=== PATIENT | male | born 1990 | race African-American/Black ===

== ENCOUNTER 2019-10-24 18:11 | Emergency (ER) | payer OTHER ==
[~2019-10-24] VITALS: Ht 185.4 cm; Wt 86.2 kg
[2019-10-24 18:19] VITALS: BP 139/65
[2019-10-24 18:27] VITALS: BP 139/65
[2019-10-24] MEDS ORDERED: Hydrogen Peroxide 473ml Bottle TOPIC ONE (18:47)
--- NOTE | 2019-10-24 19:02 | Emergency Room Report ---
History of Present Illness General Chief Complaint: Laceration Source: Patient Present Illness HPI 29-year-old male with no symptom medical history here due to a laceration while gardening 30 minutes prior to arrival. Obvious deformity of the nail involvement noted. Minimal bleeding noted. Patient appears to be up-to-date with tetanus shot. Range of motion, no neurovascular changes noted. Motor and sensory deficits are not noted. Denies all other injuries. Has not taken medication for symptom relief. Allergies: Coded Allergies: No Known Allergies (Unverified , 10/24/19) COVID-19 Screening Contact w/high risk pt: No Recent Travel to affected area: No Experienced COVID-19 symptoms?: No COVID-19 Testing performed FENDER MECHANIC: No Patient History Past Medical History: see triage record Past Surgical History: none Pertinent Family History: none Immunizations: UTD Reviewed Nursing Documentation: PMH: Agreed; PSxH: Agreed Nursing Documentation-PMH Past Medical History: No Stated History Review of Systems All Other Systems: negative except mentioned in HPI Physical Exam Vital Signs Date Time Temp Pulse Resp B/P (MAP) Pulse Ox O2 Delivery O2 Flow Rate FiO2 10/24/19 18:19 98.2 75 139/65 (89) Sp02 EP Interpretation: reviewed, normal General Appearance: no apparent distress, alert, GCS 15, non-toxic Head: normocephalic, atraumatic Eyes: bilateral eye normal inspection, bilateral eye PERRL ENT: hearing grossly normal, normal pharynx, no angioedema, normal voice Neck: full range of motion, supple/symm/no masses Respiratory: chest non-tender, lungs clear, normal breath sounds, no rhonchi, speaking full sentences Cardiovascular #1: regular rate, rhythm, no edema Cardiovascular #2: 2+ radial (R), 2+ radial (L) Gastrointestinal: normal bowel sounds, non tender, soft, non-distended, no guarding, no rebound Genitourinary: no CVA tenderness Musculoskeletal: back normal Neurologic: alert, motor strength/tone normal, oriented x3, sensory intact, responsive, speech normal Psychiatric: judgement/insight normal, memory normal, mood/affect normal, no suicidal/homicidal ideation Skin: laceration - Superficial laceration right middle finger with nail involvement Lymphatic: no adenopathy Procedures Laceration/Wound Repair Laceration/Wound Repair : Consent: Verbal Wound Location: upper extremity - right middle finger Wound's Depth, Shape: superficial Wound Length (cm): 1 Wound Explored: contaminated Anesthesia: 1% Lidocaine Volume Anesthetic (ccs): 7 Wound Debrided: minimal Wound Repaired With: sutures, Dermabond Suture Size/Type: 4:0, proline Number of Sutures: 4 Sterile Dressing Applied?: Yes Splint Applied?: Yes Type of Splint Applied: metal Sling Applied?: No Patient Tolerated: Well Complications: None Medical Decision Making PA Attestation All diagnoses and treatment plans were reviewed and discussed with my supervising physician Dr. Perez Diagnostic Impression: Primary Impression: Finger laceration ER Course 29-year-old male with no symptom medical history here due to a laceration while gardening 30 minutes prior to arrival. Obvious deformity of the nail involvement noted. Minimal bleeding noted. Patient appears to be up-to-date with tetanus shot. Range of motion, no neurovascular changes noted. Motor and sensory deficits are not noted. Denies all other injuries. Has not taken medication for symptom relief. Ddx considered but are not limited to : Superficial laceration, deep laceration , tendon involvement with laceration, laceration with foreign body Vital signs: are WNL, pt. is afebrile H&PE are most consistent with: Superficial laceration ORDERS: finger Xray, Augmentin, ibuprofen ED INTERVENTIONS: Closure and dressing placement DISCHARGE: At this time pt. is stable for d/c to home. Will provide printed patient care instructions, and any necessary prescriptions. Care plan and follow up instructions have been discussed with the patient prior to discharge. Sutures to be removed in 7 to 10 days. Take medication as directed, follow- up with director of orthopedics, if worsening symptoms return to the emergency room Other X-Ray Diagnostic Results Other X-Ray Diagnostic Results : X-Ray ordered: finger Xray # of Views/Limited Vs Complete: 3 View Indication: Pain EP Interpretation: Yes PA Xray: Interpretation reviewed, by supervising MD, and agrees with findings. Interpretation: no dislocation, no soft tissue swelling Impression: No acute disease Electronically Signed by: Joi Hurd PA-C Last Vital Signs Date Time Temp Pulse Resp B/P (MAP) Pulse Ox O2 Delivery O2 Flow Rate FiO2 10/24/19 18:27 98.2 139/65 10/24/19 18:19 75 Disposition: HOME, SELF-CARE Condition: Stable Scripts Ibuprofen (Ibu) 800 Mg Tablet 800 MG PO TID, #30 TAB Prov: Joi Petty 10/24/19 Amoxicillin/Potassium Clav 875-125* (AUGMENTIN 875-125 TABLET*) 1 Each Tablet 1 TAB ORAL TWICE A DAY for 10 Days, #20 TAB Prov: Joi Petty 10/24/19 Referrals: [facility],REFERRING (PCP) Patient Instructions: Laceration Care, Adult Additional Instructions: Take medication as directed, follow-up with director of orthopedics, sutures to be removed in 7 to 10 days, if worsening symptoms return to the emergency room Joi Petty October 24, 2019 19:02
[2019-10-24] MEDS ORDERED: IBU800 MG PO (19:13)
[2019-10-24] MEDS ORDERED: AUGMENTIN 875-1 EAC1 ORAL (19:13)
--- NOTE | 2019-10-26 16:30 | Diagnostic Imaging Report ---
EXAM: X-RAY XRAY Fingers 2-3v R CLINICAL HISTORY: Trauma with finger pain. COMPARISON: None FINDINGS: Total of 3 views of the right middle finger were obtained. Alignment is anatomic. There is no fracture, bony lesions or erosions. Joint spaces are unremarkable. There is soft tissue injury at the tip of the finger. IMPRESSION: SOFT TISSUE INJURY AT THE TIP OF THE FINGER BUT NO BONY ABNORMALITY SEEN.
== END 2019-10-24 19:24 | disposition home or self-care (01) ==
LOC: EMR 18:42
DX: S61.212A Laceration without foreign body of right middle finger without damage to nail, initial encounter (principal); X58.XXXA Exposure to other specified factors, initial encounter; Y93.H2 Activity, gardening and landscaping; Y92.017 Garden or yard in single-family (private) house as the place of occurrence of the external cause
CPT/HCPCS: 99283

== ENCOUNTER 2019-11-02 12:52 | Emergency (ER) | payer OTHER ==
[~2019-11-02] VITALS: Ht 193 cm; Wt 86.2 kg
[~2019-11-02 12:52] MED LIST: AUGMENTIN 875-1 EAC1 ORAL; IBU800 MG PO
--- NOTE | 2019-11-02 13:27 | Emergency Room Report ---
History of Present Illness General Chief Complaint: Wound Recheck/Suture Removal Source: Patient Present Illness HPI 29-year-old male with no symptom past medical history here requesting suture removal. Patient was here [place] [facility] 1 week ago for finger laceration. Wound appears to be healing part of nail still detached however healing through secondary intention. No pus drainage noted. Denies fever and chills. Has been taking antibiotics. Has not yet made appointment with emr specialist Allergies: Coded Allergies: No Known Allergies (Unverified , 10/24/19) COVID-19 Screening Contact w/high risk pt: No Recent Travel to affected area: No Experienced COVID-19 symptoms?: No COVID-19 Testing performed RAILROAD AUDITOR: No Patient History Past Medical History: see triage record Past Surgical History: none Pertinent Family History: none Immunizations: UTD Reviewed Nursing Documentation: PMH: Agreed; PSxH: Agreed Nursing Documentation-PMH Past Medical History: No Stated History Review of Systems All Other Systems: negative except mentioned in HPI Physical Exam Vital Signs Date Time Temp Pulse Resp B/P (MAP) Pulse Ox O2 Delivery O2 Flow Rate FiO2 11/02/19 13:02 98.4 86 19 128/79 (95) 99 Room Air Sp02 EP Interpretation: reviewed, normal General Appearance: well appearing, no apparent distress Head: normocephalic, atraumatic ENT: hearing grossly normal, normal voice Neck: full range of motion, supple Respiratory: no respiratory distress, speaking full sentences Cardiovascular #1: normal inspection, no edema Cardiovascular #2: 2+ radial (R), 2+ radial (L) Gastrointestinal: non tender, soft Rectal: deferred Genitourinary: no CVA tenderness Musculoskeletal: gait/station normal Neurologic: alert, normal gait Psychiatric: mood/affect normal Skin: laceration - Healed laceration right ring finger Lymphatic: no adenopathy Medical Decision Making PA Attestation All my diagnosis and treatment plans were reviewed ad discussed with my supervising physician Dr. Lagos Diagnostic Impression: Primary Impression: Encounter for removal of sutures ER Course 29-year-old male with no symptom past medical history here requesting suture removal. Patient was here [place] [facility] 1 week ago for finger laceration. Wound appears to be healing part of nail still detached however healing through secondary intention. No pus drainage noted. Denies fever and chills. Has been taking antibiotics. Has not yet made appointment with emr specialist Ddx considered but are not limited to : Superficial laceration, deep laceration , tendon involvement with laceration, laceration with foreign body Vital signs: are WNL, pt. is afebrile H&PE are most consistent with: Suture removal ORDERS: Bactrim, ibuprofen as patient requested more ibuprofen also since he is worried about further infection I wrote for Bactrim ED INTERVENTIONS: Suture removal, 4 sutures were removed, Steri-Strips applied, proper bandage applied DISCHARGE: At this time pt. is stable for d/c to home. Will provide printed patient care instructions, and any necessary prescriptions. Care plan and follow up instructions have been discussed with the patient prior to discharge. Patient to continue take medication as directed, follow-up primary doctor for referral to emr specialist, if worsening symptoms return to the emergency room Patient was evaluated in the context of the global COVID-19 pandemic, which necessitated consideration that the patient might be at risk for infection with the SARS-COV-2 virus that causes COVID-19. Institutional protocols and algorithms that pertain to the evaluation of patients at risk for COVID-19 are in a state of rapid change based on information relieved by multiple regulatory bodies including the CDC and the federal and state organizations. These policies and algorithms were followed during the patient's care in the ED. Last Vital Signs Date Time Temp Pulse Resp B/P (MAP) Pulse Ox O2 Delivery O2 Flow Rate FiO2 11/02/19 13:02 98.4 86 19 128/79 (95) 99 Room Air Disposition: HOME, SELF-CARE Condition: Stable Scripts Ibuprofen (Ibu) 800 Mg Tablet 800 MG PO BID, #30 TAB Prov: Joi Petty 11/02/19 Trimethoprim/Sulfamethoxazole 160/800* (BACTRIM DS TABLET*) 1 Each Tablet 1 TAB ORAL TWICE A DAY for 7 Days, #14 TAB Prov: Joi Petty 11/02/19 Patient Instructions: Suture Removal, Care After Additional Instructions: Take medication as directed, follow with primary doctor for referral to hand specialist, if worsening symptoms return to the emergency room Joi Petty November 02, 2019 13:27
[2019-11-02] MEDS ORDERED: BACTRIM DS TAB1 EAC1 ORAL (13:29)
[2019-11-02] MEDS ORDERED: IBU800 MG PO (13:29)
--- NOTE | 2019-11-02 13:30 | NUR ---
ED Nurse Note:pt. came for suture removal from right 3rd finger
--- NOTE | 2019-11-02 13:40 | NUR ---
ER DISCHARGE NOTE:dressing was placed on right finger Patient is cleared to be discharged per ERMD, pt is aox4, on room air, with stable vital signs. pt was given dc and prescription instructions, pt was able to verbalize understanding, pt is able to ambulate with steady gait. pt took all belongings.
[2019-11-02 13:50] VITALS: BP 128/79
== END 2019-11-02 13:55 | disposition home or self-care (01) ==
LOC: EMR 13:35
DX: Z48.02 Encounter for removal of sutures (principal); S61.214D Laceration without foreign body of right ring finger without damage to nail, subsequent encounter; X58.XXXD Exposure to other specified factors, subsequent encounter
CPT/HCPCS: 99282